=== PATIENT | female | born 1990 | race Caucasian/White ===

== ENCOUNTER 2021-02-27 10:34 | Emergency (ER) | payer SELFPAY ==
[~2021-02-27] VITALS: Ht 170.2 cm; Wt 117.9 kg
[~2021-02-27 10:34] MED LIST: AMOCLA875 PO; AMOX500; AZIT250 PO; BCP; CEFA500 PO; CLIN300 PO; CODACE30 PO; CODACEE120 PO; CRUTCH4 USE; Cipro500 MG PO; DIVA500EC PO; DIVA500ER PO; HYDACE5 PO; HYDACE5325 PO; IBUP400; IBUP400 PO; IBUP600 PO; IBUP800 PO; IRON150C; LABE100 PO; LABE200 PO; LAMICTAL ODT200 MG PO; LAMO100 PO; META800 PO; METR500 PO; NEOCOLOTSU OT; ONDA4ODT MM; ONDA8 PO; PRED20 PO; PRENATAL TABLE1 EAC2 PO; SERT50 PO; SULTRIDS PO
[2021-02-27 11:30] LABS: Source, Urine Clean Catch
[2021-02-27 11:47] LABS: Alanine Aminotransfer (ALT/SGP 25 U/L (12-78); Albumin, Blood 3.7 g/dL (3.4-5.0); Albumin/Globulin Ratio 1.1 (0.8-1.8); Alk Phos 103 U/L (50-136); Anion Gap 5 mmol/L (6-16); Aspartate Aminotrans (AST/SGOT 19 U/L (12-37); Bilirubin, Total 0.4 mg/dL (0.1-1.0); Blood Urea Nitrogen 7 mg/dL (8-24); Bun/Creatinine Ratio 9.1 (12.0-20.0); CO2, Blood 27 mmol/L (21-32); Calcium, Blood 9.3 mg/dL (8.5-10.1); Chloride, Blood 105 mmol/L (98-108); Creatinine, Blood 0.77 mg/dL (0.40-1.00); Globulin, Blood 3.4 g/dL (2.2-4.0); Glomerular Filtration Rate >60 (60-); Glucose, Blood 90 mg/dL (70-99); Magnesium, Blood 1.8 mg/dL (1.6-2.4); Potassium, Blood 4.2 mmol/L (3.5-5.5); Sodium, Blood 137 mmol/L (136-145); Total Protein, Blood 7.1 g/dL (6.4-8.2)
[2021-02-27 11:54] LABS: Appearance, Urine Hazy (Clear); Bilirubin, Urine Neg (Neg); Blood, Urine 1+ (Neg); Color, Urine Yellow (P-Yellow); Glucose Qualitative, Urine Neg (Neg); Ketones, Urine Neg (Neg); Leukocyte Esterase, Urine 2+ (Neg); Nitrite, Urine Pos (Neg); Protein, Urine 1+ (Neg); Specific Gravity, Urine 1.015 (1.003-1.022); Urobilinogen, Urine NORM (Normal)
[2021-02-27 12:11] LABS: Bacteria Many /hpf; Hyaline Casts 0-2 /lpf (0-2); Squamous Epithelial Cells Mod /hpf (Few)
[2021-02-27] MEDS ORDERED: Macrobid 100 M100 MG PO (12:37)
== END 2021-02-27 12:58 | disposition home or self-care (01) ==
LOC: ER 10:34
PROVIDERS: Physician Assistant
DX: N39.0 Urinary tract infection, site not specified (principal); R51.9 Headache, unspecified; M79.10 Myalgia, unspecified site; I10 Essential (primary) hypertension; G40.909 Epilepsy, unspecified, not intractable, without status epilepticus; Z88.1 Allergy status to other antibiotic agents; Z79.899 Other long term (current) drug therapy
CPT/HCPCS: 36415; 80053; 81001; 81025; 83735; 87086; 96374; 99284-25; A9270; J1885